=== PATIENT | female | born 1965 | race Caucasian/White ===

== ENCOUNTER → 2021-05-16 | Outpatient (CLI) | payer OTHER ==
[~2021-05-16] MED LIST: ECOTRIN81 MG PO; EFFEXOR XR75 MG PO; LIPITOR TAB 2020 MG PO; NICODERM CQ1 EAC1 TD; ZANTAC150 MG PO
== END ==
LOC: MAMO 04-25 15:30
DX: Z12.31 Encounter for screening mammogram for malignant neoplasm of breast (principal)
CPT/HCPCS: 77063; 77067